=== PATIENT | female | born 1960 | race Caucasian/White ===

== ENCOUNTER 2021-01-17 13:43 | Outpatient (RCR) | payer OTHER | END 2021-04-17 | disposition home or self-care (01) | LOC: PT | DX: H81.11 Benign paroxysmal vertigo, right ear (principal) ==

== ENCOUNTER → 2021-01-29 | Outpatient (CLI) | payer OTHER | LOC: RAD 06:53 | DX: G93.89 Other specified disorders of brain (principal); J32.0 Chronic maxillary sinusitis; J32.2 Chronic ethmoidal sinusitis | CPT/HCPCS: A9585 ==